=== PATIENT | female | born 1995 | race Caucasian/White ===

== ENCOUNTER 2022-10-11 01:18 | Inpatient (IN) | payer OTHER ==
[~2022-10-11] VITALS: Ht 149.9 cm; Wt 101.8 kg
[2022-10-11] VITALS (40 sets, daily range): BP systolic 79–206; BP diastolic 42–127
[~2022-10-11 01:18] MED LIST: IBUP800 PO; ONDA4ODT MM; OXYACE5T PO; PNV-DHA SOFTGE1 EACH PO; RANI150 PO
[2022-10-11 02:40] LABS: BASOPHILS ABSOLUTE AUTO 0.03 K/mm3 (0.00-0.23); BASOPHILS PERCENT AUTO 0 % (0-2); EOSINOPHILS ABSOLUTE AUTO 0.06 K/mm3 (0.00-0.68); EOSINOPHILS PERCENT AUTO 1 % (0-6); Hematocrit 35.7 % (33.0-51.0); Hemoglobin 11.9 g/dL (11.5-16.0); IMMATURE GRAN ABSOLUTE AUTO 0.06 K/mm3 (0.00-0.10); IMMATURE GRAN PERCENT AUTO 1 % (0-1); LYMPHOCYTES PERCENT AUTO 25 % (21-46); MONOCYTES ABSOLUTE AUTO 0.49 K/mm3 (0.16-1.47); MONOCYTES PERCENT AUTO 6 % (4-13); Mean Corpuscular HGB 27.4 pg (26.0-34.0); Mean Corpuscular HGB Conc 33.3 g/dL (31.5-36.5); Mean Corpuscular Volume 82 fL (80-100); Mean Platelet Volume 9.5 fL (9.1-12.4); NEUTROPHILS ABSOLUTE AUTO 5.26 K/mm3 (1.96-9.15); NEUTROPHILS PERCENT AUTO 67 % (41-73); Platelet Count 126 K/mm3 (150-400); RDW Coefficient Variation 14.6 % (11.7-14.2); RDW Standard Deviation 42.2 fL (35.1-46.3); Red Blood Cell Count 4.35 M/mm3 (3.80-5.20)
[2022-10-12 03:23] VITALS: BP 124/60
[2022-10-12 06:06] LABS: Hematocrit 32.6 % (33.0-51.0); Hemoglobin 10.6 g/dL (11.5-16.0); Mean Corpuscular HGB 26.8 pg (26.0-34.0); Mean Corpuscular HGB Conc 32.5 g/dL (31.5-36.5); Mean Corpuscular Volume 83 fL (80-100); Mean Platelet Volume 9.2 fL (9.1-12.4); Platelet Count 105 K/mm3 (150-400); RDW Coefficient Variation 14.7 % (11.7-14.2); RDW Standard Deviation 43.3 fL (35.1-46.3); Red Blood Cell Count 3.95 M/mm3 (3.80-5.20); White Blood Cell Count 7.21 K/mm3 (4.00-11.30)
[2022-10-12 07:21] VITALS: BP 115/57
[2022-10-12] MEDS ORDERED: IBUP800 PO (10:04)
[2022-10-12] MEDS ORDERED: Colace100 MG PO (10:04)
--- NOTE | 2022-10-12 11:03 | NUR ---
PATIENT GIVEN WRITTEN AND VERBAL DC INSTRUCTIONS. QUESTIONS ANSWERED. PT FEELS MUCH BETTER POST FRENULECTOMY BY DR CHINO. WILL FOLLOW UP MONDAY FOR PPFU WITH ALEX AT 1300. WILL ALSO SEE MINESH MUSTAFA WITHIN 4-6 WEEKS. SCRIPT GIVEN FOR IBUPROFEN.
== END 2022-10-12 11:30 | disposition home or self-care (01) | DRG 807 ==
LOC: OBS 01:18 → BC 01:20 → OBS 01:38 → BC 01:40
PROVIDERS: ADMIT Advanced Practice Midwife
PROC: 10E0XZZ Delivery of Products of Conception, External Approach (ICD-10-PCS; principal; 2022-10-11)
PROC: 10907ZC Drainage of Amniotic Fluid, Therapeutic from Products of Conception, Via Natural or Artificial Opening (ICD-10-PCS; 2022-10-11)
PROC: 0HQ9XZZ Repair Perineum Skin, External Approach (ICD-10-PCS; 2022-10-11)
PROC: 00HU33Z Insertion of Infusion Device into Spinal Canal, Percutaneous Approach (ICD-10-PCS; 2022-10-11)
PROC: 3E0R3BZ Introduction of Anesthetic Agent into Spinal Canal, Percutaneous Approach (ICD-10-PCS; 2022-10-11)
DX: O48.0 Post-term pregnancy (principal); Z37.0 Single live birth; O99.344 Other mental disorders complicating childbirth; O24.429 Gestational diabetes mellitus in childbirth, unspecified control; F41.9 Anxiety disorder, unspecified; Z67.40 Type O blood, Rh positive; O70.0 First degree perineal laceration during delivery; Z3A.40 40 weeks gestation of pregnancy
CPT/HCPCS: 36415; 51702; 85025; 85027; 86850; 86900; 86901; A9270; J1885; J2590; J3010; J7120

== ENCOUNTER → 2023-05-15 | Outpatient (CLI) | payer OTHER ==
[~2023-05-15] MED LIST changes: +Colace100 MG PO
[2023-05-15 20:24] LABS: Bacterial Vaginosis PCR Negative (NEGATIVE)
[2023-05-15 20:47] LABS: Candida Group, PCR DETECTED (NOT DETECT); Candida glabrata-krusei, PCR DETECTED (NOT DETECT)
[2023-05-17 19:28] LABS: HSV 1 SUBTYPE BY PCR Not Detected; HSV 2 SUBTYPE BY PCR Detected; HSV SUBTYPE SOURCE LABIA
[2023-05-18 00:45] LABS: APTIMA MEDIA TYPE Unisex Swab; C. TRACHOMATIS BY TMA Negative (Negative); N. GONORRHOEAE BY TMA Negative (Negative); SPECIMEN SOURCE Cervical
== END | disposition home or self-care (01) ==
LOC: LAB 15:05 → LAB SHORT 15:05
PROVIDERS: Emergency Medicine
DX: N89.8 Other specified noninflammatory disorders of vagina (principal)
CPT/HCPCS: 87481; 87491; 87529; 87591; 87661; 87801